=== PATIENT | female | born 1960 | race Caucasian/White ===

== ENCOUNTER → 2023-03-08 | Day surgery (SDC) | payer BC ==
[~2023-03-08] MED LIST: Glycopyrrolate 0.2 MG/ML SDV ONE; Propofol 200 MG/20 ML SDV ONE
[2023-03-08] MEDS: Lactated Ringers 1,000 ML IV SCH (10:18)
[2023-03-08 11:36] VITALS: BP 108/72; PULSE 57
== END ==
LOC: CC.SDS 09:33
PROVIDERS: ATTEND Family Medicine
DX: K63.5 Polyp of colon (principal); K29.80 Duodenitis without bleeding; K29.50 Unspecified chronic gastritis without bleeding; B96.81 Helicobacter pylori [H. pylori] as the cause of diseases classified elsewhere; K21.9 Gastro-esophageal reflux disease without esophagitis; K27.9 Peptic ulcer, site unspecified, unspecified as acute or chronic, without hemorrhage or perforation; I10 Essential (primary) hypertension; J30.9 Allergic rhinitis, unspecified; E55.9 Vitamin D deficiency, unspecified; E78.00 Pure hypercholesterolemia, unspecified; E11.9 Type 2 diabetes mellitus without complications; Z86.010 Personal history of colon polyps; Z79.899 Other long term (current) drug therapy; Z98.890 Other specified postprocedural states
CPT/HCPCS: 00813; 87081; J2704; J3490; J7120